=== PATIENT | male | born 1975 | race Caucasian/White ===

== ENCOUNTER 2018-08-09 20:33 | Emergency (ER) | payer MEDICAID ==
[~2018-08-09] VITALS: Ht 172.7 cm; Wt 75.0 kg
[2018-08-09 20:52] LABS: MEAN CORPUSCULAR HEMOGLOBIN 31.6 pg (27.5-34.5); MEAN CORPUSCULAR HGB CONC 33.8 g/dL (33.2-36.2); MEAN CORPUSCULAR VOLUME 93.7 fL (81-97); MEAN PLATELET VOLUME 6.3 fL (7.4-10.4); PLATELET COUNT 264 x10^3/uL (130-400); RED BLOOD COUNT 5.26 x10^6/uL (4.38-5.82); RED CELL DISTRIBUTION WIDTH 14.1 % (9.4-14.8)
[2018-08-09] MEDS ORDERED: ONDANSETRON 2MG/ML, 2ML IVPush ONE (21:00)
[2018-08-09] MEDS ORDERED: SODIUM CHLORIDE FLUSH 10ML SYR IVF ONE (21:00)
[2018-08-09 21:02] LABS: ALANINE AMINOTRANSFERASE 96 U/L (12-78); ALBUMIN 4.5 g/dL (3.4-5.0); ANION GAP 8 mmol/L (5-15); CALCIUM 9.3 mg/dL (8.5-10.1); CHLORIDE 107 mmol/L (98-107); CREATININE 1.58 mg/dL (0.7-1.3)
[2018-08-09 21:04] LABS: ALKALINE PHOSPHATASE 141 U/L (45-117); BILIRUBIN,TOTAL 0.5 mg/dL (0.2-1.0); TOTAL PROTEIN 8.3 g/dL (6.4-8.2)
[2018-08-09 21:07] LABS: BASOPHILS % (AUTO) 0 % (0-1); EOSINOPHILS % (AUTO) 0 % (1-7); LYMPHOCYTES # (AUTO) 1.13 x10^3/uL (1-3.4); LYMPHOCYTES % (AUTO) 6 % (22-44); MD SCAN; MONOCYTES % (AUTO) 5 % (2-9); NEUTROPHILS # (AUTO) 16.56 x10^3/uL (1.8-6.8); NEUTROPHILS % (AUTO) 89 % (42-75)
[2018-08-09] MEDS ORDERED: MORPHINE SULFATE 4 MG/ML, 1ML ONE ×3 (21:09→23:16)
[2018-08-09] MEDS ORDERED: ONDANSETRON 2MG/ML, 2ML ONE (21:09)
[2018-08-09] MEDS: MORPHINE SULFATE 4 MG/ML, 1ML IVPush PRN ×2 (21:12→21:32)
--- NOTE | 2018-08-09 21:20 | NUR ---
PT BACK FROM CT. IV PLACED, PT MEDICATED PER ERP ORDER FOR 8/10 ABD AND FLANK PAIN. BP CUFF, PULSE OX IN PLACE. PT CONTINUES TO BE HYPERTENSIVE, STATES DX WITH HTN BUT HAS NEVER BEEN PRESCRIBED MEDS FOR IT. PT UPDATED ON POC. URINAL AT BS, PT UNDERSTANDS NEED FOR UA. CALL LIGHT WITHIN REACH, MOTHER AT BS.
--- NOTE | 2018-08-09 21:35 | NUR ---
PT REMEDICATED FOR 8/10 L FLANK AND ABDOMINAL PAIN. PT ASKED TO TRY FOR URINE SPECIMEN AND UPDATED THAT ALL OTHER RESULTS BACK. CALL LIGHT WITHIN REACH.
--- NOTE | 2018-08-09 21:49 | NUR ---
URINE COLLECTED/SENT TO LAB. ADD ON LAB AND EKG ORDERS FROM ERP.
[2018-08-09 21:58] LABS: MICROSCOPIC AUTO
[2018-08-09 22:00] LABS: CULTURE INDICATED? NO
[2018-08-09 22:08] LABS: AMPHETAMINE SCREEN, URINE Positive (Negative); BARBITURATE SCREEN, URINE Negative (Negative); BENZODIAZEPINE SCREEN, URINE Negative (Negative); CANNABINOID SCREEN, URINE Positive (Negative); COCAINE SCREEN, URINE Negative (Negative); METHADONE SCREEN, URINE Negative (Negative); OPIATE SCREEN, URINE Positive (Negative)
[2018-08-09 22:13] LABS: TROPONIN I < 0.015 ng/mL (0.000-0.045)
[2018-08-09] MEDS ORDERED: hydrALAzine 20 MG/ML, 1ML IV ONE ×2 (22:30→23:30)
[2018-08-09] MEDS ORDERED: hydrALAzine 20 MG/ML, 1ML ONE ×2 (22:36→23:16)
--- NOTE | 2018-08-09 23:10 | NUR ---
IV IN LEFT AC BLOWN. IV STARTED IN RIGHT AC, PT MEDICATED FOR PAIN AND BP. PT AWAITING CT WITH CONTRAST.
[2018-08-09] MEDS ORDERED: MORPHINE SULFATE 4 MG/ML, 1ML IVPush PRN (23:30)
[2018-08-09] MEDS ORDERED: OMNIPAQUE 350 MG/ML, 100ML BOTTLE ONE (23:53)
--- NOTE | 2018-08-10 00:08 | NUR ---
TP RN: PT HAS [employer]URANCE. PER ERP PT TOO UNSTABLE FOR TRANSFER.
--- NOTE | 2018-08-10 00:29 | NUR ---
ADDITIONAL IV STARTED AT THIS TIME. IV MEDICATIONS INFUSING, BP SET FOR Q15 MIN. MOTHER AT BEDSIDE.
[2018-08-10] MEDS ORDERED: ESMOLOL/NS PMX 250 ML IV PRN (00:30)
[2018-08-10] MEDS ORDERED: hydrALAzine 20 MG/ML, 1ML ONE (01:15)
[2018-08-10 01:17] VITALS: BP 201/116
--- NOTE | 2018-08-10 01:19 | NUR ---
Patient to be transferred to [facility] ED per Dr. Shaikh (vascular surgery). Patient with medicaid [place] but as patient is an emergent transfer we are not waiting on their acceptance to transfer. Imaging pushed over to [facility] via radiology. [facility] set up, ED RN to go with patient as [facility] medics unable to run necessary drips. [facility] on scene at this time to take patient to [facility] ER. Accepting at transfer center [facility], accepting doctor Dr. Cano.
[2018-08-10] MEDS ORDERED: hydrALAzine 20 MG/ML, 1ML IV ONE (01:30)
== END 2018-08-10 01:30 | disposition short-term general hospital (02) ==
LOC: ED 22:26
DX: I71.03 Dissection of thoracoabdominal aorta (principal); I16.9 Hypertensive crisis, unspecified; I10 Essential (primary) hypertension; D72.829 Elevated white blood cell count, unspecified; F15.129 Other stimulant abuse with intoxication, unspecified; Z72.9 Problem related to lifestyle, unspecified; Z87.891 Personal history of nicotine dependence
CPT/HCPCS: 36415; 71275; 74176; 74177; 80053; 80307; 81001; 83605; 83690; 84484; 85025; 86677; 93005; 96365; 96375; 96376; 99291; 99292; J0360; J2405; Q9967